=== PATIENT | male | born 1995 | race Caucasian/White ===

== ENCOUNTER 2016-07-18 18:08 | Emergency (ER) | payer MEDICAID ==
[~2016-07-18] VITALS: Ht 175.3 cm; Wt 91.2 kg
[2016-07-18 19:28] VITALS: BP 152/98
== END 2016-07-18 19:28 | disposition home or self-care (01) ==
LOC: ED 18:08
DX: F41.9 Anxiety disorder, unspecified (principal); R20.0 Anesthesia of skin; R53.1 Weakness; R63.0 Anorexia